=== PATIENT | male | born 1970 | race Caucasian/White ===

== ENCOUNTER 2017-09-27 21:11 | Emergency (ER) | payer BC ==
[2017-09-27 21:16] VITALS: BP 134/82; RESP 20
[2017-09-27] MEDS ORDERED: PROPARACAINE 0.5% OPHTH DROPS 15 ML BTL RIGHT EYE STA (21:22)
[2017-09-27] MEDS ORDERED: ERYTHROMYCIN 5 MG/GM OPHTH OINT 3.5 GM TUBE RIGHT EYE STA (21:51)
--- NOTE | 2017-09-27 21:57 | ED ---
Eye Problem HPI - General Chief complaint: Eye Problems Stated complaint: metal in eye Time Seen by Provider: 09/27/17 21:22 Source: patient, RN notes reviewed Mode of arrival: ambulatory Limitations: no limitations - History of Present Illness Initial comments: This is a 47-year-old male who presents to the emergency department with chief complaint of metal foreign body within his right eye. Patient states that he was grinding metal yesterday. He states that he has had eye irritation ever since. He reports a foreign body sensation. Denies any vision changes, double vision or blurred vision. He denies any injuries or trauma. Denies fever, chills, chest pain, shortness of breath, abdominal pain, nausea or vomiting, numbness or tingling, headache. - Related Data Home Medications Medication Instructions Recorded Confirmed No Known Home Medications 09/27/17 09/27/17 Allergies Allergy/AdvReac Type Severity Reaction Status Date / Time Penicillins Allergy Unknown Verified 09/27/17 21:13 Childhood Review of Systems ROS Statement: Those systems with pertinent positive or pertinent negative responses have been documented in the HPI. ROS Other: All systems not noted in ROS Statement are negative. Past Medical History Past Medical History: Deep Vein Thrombosis (DVT) History of Any Multi-Drug Resistant Organisms: None Reported Past Surgical History: No Surgical Hx Reported Past Psychological History: No Psychological Hx Reported Smoking Status: Current every day smoker Past Alcohol Use History: None Reported Past Drug Use History: None Reported General Exam - General Exam Comments Initial Comments: General: Awake and alert, well-developed; in no apparent distress. HEENT: Head atraumatic, normocephalic. Pupils are equal, round and reactive to light. Extraocular movements intact. Right conjunctiva is injected. There is a small, pinpoint corneal foreign body at approximately 6:00 on the border of the iris and pupil. Negative Aleena's test. On fluorescein staining, after removal of foreign body, small abrasion noted to the cornea. Oropharynx moist without erythema or exudate. Neck: Supple. Normal ROM. Cardiovascular: Regular rate and rhythm. No murmurs, rubs or gallops. Chest symmetrical. Respiratory: Lungs clear to auscultation bilaterally. No wheezes, rales or rhonchi. Normal respiratory effort with no use of accessory muscles. Musculoskeletal: Normal ROM, no tenderness bilateral upper and lower extremities. Ambulating normally. Skin: [place], warm and dry without rashes or lesions. Neurological: Alert and oriented x3. CN II-XII grossly intact. Speech is fluent and answers are appropriate. No focal neuro deficits. Psychiatric: Normal mood and affect. No overt signs of depression or anxiety noted. Limitations: no limitations Course Vital Signs 09/27/17 21:14 Temperature 98.2 F Pulse Rate 61 Respiratory 20 Rate Blood Pressure 134/82 O2 Sat by Pulse 96 Oximetry Medical Decision Making - Medical Decision Making This is a 47-year-old male who presents to the emergency department with chief complaint of metal foreign body within the right eye. Patient states he was grinding metal yesterday and has had a foreign body sensation and irritation to the right eye ever since. Denies any vision changes. On physical examination, right conjunctiva is injected. There is a small, pinpoint corneal foreign body at approximately 6:00. This was removed with an 18-gauge needle and rust ring removed with the [place] brush. On fluorescein staining, small abrasion is noted. Negative Aleena's test. Patient tolerated the procedure well without complication. He will be started on erythromycin ointment. He is given follow- up information for ophthalmology. Recommended calling tomorrow morning and setting up an appointment. Vital signs are stable and patient is in no acute distress. He will be discharged home at this time. All questions answered. Disposition Clinical Impression: Corneal foreign body Disposition: HOME SELF-CARE Condition: Good Instructions: Eye Foreign Body (ED), Erythromycin (Into the eye) Additional Instructions: Please follow-up with Dr. Landry, ophthalmology tomorrow morning. Please apply a half-inch ribbon of erythromycin to the affected eye every 6 hours for the next 5 days. Please follow up with primary care provider within 1-2 days. Return to emergency department if symptoms should worsen or any concerns arise. Is patient prescribed a controlled substance at d/c from ED?: No Referrals: Tank Thomas DO [Primary Care Provider] - 1-2 days Amador Landry MD [STAFF PHYSICIAN] - 1-2 days Time of Disposition: 21:57
[2017-09-27] MEDS ORDERED: DIPH,PERTUS(ACELL)TETVAC-LF 0.5 ML VIAL IM ONE (22:04)
[2017-09-27 22:28] VITALS: PULSE 69; TEMP 98
== END 2017-09-27 22:28 | disposition home or self-care (01) ==
LOC: EC 21:11
DX: T15.01XA Foreign body in cornea, right eye, initial encounter (principal); F17.200 Nicotine dependence, unspecified, uncomplicated; Z23 Encounter for immunization; Z88.0 Allergy status to penicillin; W22.8XXA Striking against or struck by other objects, initial encounter; Y93.89 Activity, other specified
CPT/HCPCS: 65220; 90471; 90715; 99283